=== PATIENT | male | born 1995 | race African-American/Black ===

== ENCOUNTER 2020-07-14 16:37 | Emergency (ER) | payer SELFPAY ==
[~2020-07-14] VITALS: Ht 172.7 cm; Wt 61.6 kg
[2020-07-14 17:51] VITALS: BP 115/68
[2020-07-14] MEDS ORDERED: DIPH,PERTUSS(ACELL),TET VAC/PF 0.5 ML SYRINGE. VAX IM ONE (18:15)
[2020-07-14] MEDS ORDERED: LIDOCAINE 2% Multi-Dose 20 ML VIAL. IJ ONE (18:15)
[2020-07-14] MEDS ORDERED: HYDROcodone/APAP 5/325MG 1 TAB TABLET PO ONE (18:15)
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
== END 2020-07-14 19:27 | disposition home or self-care (01) ==
LOC: ER 16:37
DX: S01.81XA Laceration without foreign body of other part of head, initial encounter (principal); S80.211A Abrasion, right knee, initial encounter; S80.812A Abrasion, left lower leg, initial encounter; S80.811A Abrasion, right lower leg, initial encounter; F17.200 Nicotine dependence, unspecified, uncomplicated; Y08.89XA Assault by other specified means, initial encounter; Y93.89 Activity, other specified; Y92.89 Other specified places as the place of occurrence of the external cause; Y99.8 Other external cause status
CPT/HCPCS: 12011; 90471; 90715; 99283